=== PATIENT | female | born 1990 | race Caucasian/White ===

== ENCOUNTER 2017-08-13 05:21 | Emergency (ER) | payer BC ==
[~2017-08-13] VITALS: Ht 177.8 cm; Wt 68.0 kg
[2017-08-13 05:21] VITALS: BP 121/89
[2017-08-13] MEDS ORDERED: LIDOCAINE HCL/PF 1% 30 ML VIAL TP ONE (06:00)
[2017-08-13] MEDS ORDERED: LIDOCAINE 1%-EPI 1:100,000 20 ML VIAL ONE (06:00)
[2017-08-13] MEDS ORDERED: LIDOCAINE 1% INJ 50 ML MDV IJ ONE (06:03)
== END 2017-08-13 06:58 | disposition home or self-care (01) ==
LOC: ER 05:25
DX: S61.411A Laceration without foreign body of right hand, initial encounter (principal); W25.XXXA Contact with sharp glass, initial encounter; Y93.89 Activity, other specified; Y92.89 Other specified places as the place of occurrence of the external cause; Y99.8 Other external cause status
CPT/HCPCS: 73130-TC; A4606; A6402; J3490; Z7610